=== PATIENT | female | born 1985 | race American Indian/Alaskan Native ===

== ENCOUNTER 2019-01-14 08:21 | Emergency (ER) | payer MEDICAID, OTHER, SELFPAY ==
[2019-01-14 08:25] VITALS: BP 149/80
[2019-01-14] MEDS ORDERED: IBUPROFEN PO ONE (08:32)
[2019-01-14] MEDS ORDERED: TYLENOL PO ONE (08:32)
--- NOTE | 2019-01-14 08:42 | Emergency Department Report ---
ED General Adult HPI - General Chief complaint: Back Pain/Injury Stated complaint: BACK PAIN Time Seen by Provider: 01/14/19 08:27 Source: patient Mode of arrival: Ambulatory Limitations: No Limitations - History of Present Illness Initial comments: Patient is a 33-year-old female who presents with right-sided back pain has been going on since this morning. Patient states that she was on her way to work and she lifted her son and she noticed that she had some back pain. The back pain is mild moving makes it worse and sitting still makes it better. Patient has no numbness or paresthesia. No sciatica. Patient does not smoke she doesn't drink. Patient is employed. - Related Data Home Medications Medication Instructions Recorded Confirmed Last Taken Ferrous Sulfate [Feosol 325 MG tab] 325 mg PO QDAY 08/12/15 08/12/15 3 Days Ago ~08/09/15 Previous Rx's Medication Instructions Recorded Last Taken Type metroNIDAZOLE [Flagyl TAB] 500 mg PO BID #10 tablet 12/02/13 Unknown Rx Cyclobenzaprine HCl [Flexeril 5 MG 5 mg PO TID PRN #21 tab 03/26/16 Unknown Rx TAB] Ibuprofen [Motrin 800 MG tab] 800 mg PO Q8HR PRN #30 tablet 03/26/16 Unknown Rx Menthol/Aloe Vera Extract [Icy Hot 49 gm TP Q6H #1 gel..gram. 01/14/19 Unknown Rx 16% Power Gel] Allergies Allergy/AdvReac Type Severity Reaction Status Date / Time No Known Allergies Allergy Verified 01/14/19 08:22 ED Review of Systems ROS: Stated complaint: BACK PAIN Other details as noted in HPI Constitutional: denies: chills, fever Eyes: denies: eye pain, eye discharge, vision change ENT: denies: ear pain, throat pain Respiratory: denies: cough, shortness of breath, wheezing Cardiovascular: denies: chest pain, palpitations Endocrine: no symptoms reported Gastrointestinal: denies: abdominal pain, nausea, diarrhea Genitourinary: denies: urgency, dysuria, discharge Musculoskeletal: back pain. denies: joint swelling, arthralgia Skin: denies: rash, lesions Neurological: denies: headache, weakness, paresthesias Psychiatric: denies: anxiety, depression Hematological/Lymphatic: denies: easy bleeding, easy bruising ED Past Medical Hx - Past Medical History Previous Medical History?: No Hx Hypertension: No Hx Congestive Heart Failure: No Hx Diabetes: No Hx Deep Vein Thrombosis: No Hx Renal Disease: No Hx Sickle Cell Disease: No Hx Seizures: No Hx Asthma: No Hx COPD: No Hx HIV: No - Surgical History Past Surgical History?: No - Social History Smoking Status: Never Smoker - Medications Home Medications: Home Medications Medication Instructions Recorded Confirmed Last Taken Type metroNIDAZOLE [Flagyl TAB] 500 mg PO BID #10 tablet 12/02/13 08/12/15 Unknown Rx Ferrous Sulfate [Feosol 325 MG tab] 325 mg PO QDAY 08/12/15 08/12/15 3 Days Ago History ~08/09/15 Cyclobenzaprine HCl [Flexeril 5 MG 5 mg PO TID PRN #21 tab 03/26/16 Unknown Rx TAB] Ibuprofen [Motrin 800 MG tab] 800 mg PO Q8HR PRN #30 tablet 03/26/16 Unknown Rx Menthol/Aloe Vera Extract [Icy Hot 49 gm TP Q6H #1 gel..gram. 01/14/19 Unknown Rx 16% Power Gel] ED Physical Exam - General Limitations: No Limitations General appearance: alert, in no apparent distress - Head Head exam: Present: atraumatic, normocephalic - Eye Eye exam: Present: normal appearance - ENT ENT exam: Present: mucous membranes moist - Neck Neck exam: Present: normal inspection - Respiratory Respiratory exam: Present: normal lung sounds bilaterally. Absent: respiratory distress - Cardiovascular Cardiovascular Exam: Present: regular rate, normal rhythm. Absent: systolic murmur, diastolic murmur, rubs, gallop - GI/Abdominal GI/Abdominal exam: Present: soft, normal bowel sounds - Extremities Exam Extremities exam: Present: normal inspection - Back Exam Back exam: Present: paraspinal tenderness - Neurological Exam Neurological exam: Present: alert, oriented X3 - Psychiatric Psychiatric exam: Present: normal affect, normal mood - Skin Skin exam: Present: warm, dry, intact, normal color. Absent: rash ED Course Vital Signs 01/14/19 08:23 Temperature 98.3 F Pulse Rate 65 Respiratory 20 Rate Blood Pressure 149/80 O2 Sat by Pulse 100 Oximetry ED Medical Decision Making - Medical Decision Making Cdx: Lumbar sacral strain ddx: Psoas muscle strain, Latissimas dorsi strain I will give patient oral medications and will give patient back care instructions. Discussed plan with patient patient agrees with plan additional verbal discharge instructions were given. Critical care attestation.: If time is entered above; I have spent that time in minutes in the direct care of this critically ill patient, excluding procedure time. ED Disposition Clinical Impression: Strain of muscle, fascia and tendon of lower back, initial encounter Disposition: [id number] TO HOME OR SELFCARE Is pt being admited?: No Does the pt Need Aspirin: No Condition: Stable Instructions: Muscle Strain (ED) Prescriptions: Menthol/Aloe Vera Extract [Icy Hot 16% Power Gel] 49 gm TP Q6H #1 gel..gram.
== END 2019-01-14 08:54 | disposition home or self-care (01) ==
LOC: ED 08:21
DX: S39.012A Strain of muscle, fascia and tendon of lower back, initial encounter (principal); Z79.899 Other long term (current) drug therapy; X50.0XXA Overexertion from strenuous movement or load, initial encounter; Y93.89 Activity, other specified; Y92.89 Other specified places as the place of occurrence of the external cause; Y99.8 Other external cause status
CPT/HCPCS: 99282